=== PATIENT | female | born 1955 | race Caucasian/White ===

== ENCOUNTER 2018-09-24 12:08 | Observation (INO) | payer OTHER ==
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
--- NOTE | 2018-09-24 12:24 | RAD REPORT ---
EXAM DESCRIPTION: CT - Ct Stroke Brain Wo Cont - 09/24/2018 12:15 pm CLINICAL HISTORY: HEADACHE Headache, drowsiness, CVA symptomology COMPARISON: No comparisons TECHNIQUE: All CT scans are performed using dose optimization technique as appropriate and may inclu de automated exposure control or mA/KV adjustment according to patient size. FINDINGS: No intracranial hemorrhage, hydrocephalus or extra-axial fluid collection.Mild generalized brain atrophy is present with mild periventricular and deep white matter chronic microvascular ische debbi changes.No areas of brain edema or evidence of midline shift. The paranasal sinuses and mastoids are clear. The calvarium is intact. IMPRESSION: No acute intracranial abnormality. The findings were discussed with ER physician Dr. Gtz on 09/24/2018 at 12:20 p.m. by telephone.
[2018-09-24 12:41] LABS: Absolute Lymphocytes (CBC) 1.7 K/uL (0.7-4.9); Absolute Monocytes 0.4 K/uL (0.1-1.3); Absolute Neutrophil 2.4 K/uL (1.8-8.0); Basophils % 0.5 % (0-1.3); Eosinophils % 1.8 % (0-4.4); Hematocrit 41.1 % (36.0-45.0); Lymphocytes % 37.4 % (15.3-44.8); MPV 9.2 fL (7.6-11.3); Monocytes % 7.8 % (3.3-12.3); RBC Red Blood Cell Count 4.66 M/uL (3.86-4.86)
[2018-09-24 12:47] LABS: Protime INR 0.97
--- NOTE | 2018-09-24 12:57 | RAD REPORT ---
EXAM DESCRIPTION: RAD - Chest Single View - 09/24/2018 12:49 pm CLINICAL HISTORY: MALAISE Chest pain. COMPARISON: Chest Pa And Lat (2 Views) dated 11/20/2017; Chest Pa And Lat (2 Views) dated 10/16/2017; Chest Pa And Lat (2 Views) dated 11/03/2015; CHEST PA AND LAT 2 VIEW dated 01/13/2013 FINDINGS: Portable technique limits examination quality. The lungs are grossly clear. The heart is mildly enlarged in size. No displaced fractures. IMPRESSION: No acute intrathoracic process suspected.
[2018-09-24 13:07] LABS: BUN Blood Urea Nitrogen 15 mg/dL (7-18); Bicarbonate 27 mmol/L (21-32); C-Reactive Protein 8.52 mg/L (<3.00); Glucose Level 94 mg/dL (74-106); Sodium Level 142 mmol/L (136-145); Troponin (Emerg Dept Use Only) < 0.02 ng/mL (0.0-0.045)
--- NOTE | 2018-09-24 16:12 | ER ---
Nurse's Notes [facility] Name: Pamela Celis Age: 63 yrs Sex: Female : 1955 Arrival Date: 09/24/2018 Time: 12:11 Bed 6 Private MD: Diagnosis: Transient cerebral ischemic attack, unspecified Presentation: 09/24 12:11 Presenting complaint: Patient states: R sided headache that began 2 hours ago. Pt also ss states that she feels "disoriented" NIHSS 0 on arrival. Pt reports she had a head CT in July of this year because she has been having R eye pressure. EMS noted mild R sided weakness on arrival, but on arrival to ED, no weakness is observed. Transition of care: patient was not received from another setting of care. Onset of symptoms was September 24, 2018 at 10:00. Risk Assessment: Do you want to hurt yourself or someone else? Patient reports no desire to harm self or others. Initial Sepsis Screen: Does the patient meet any 2 criteria? No. Patient's initial sepsis screen is negative. Does the patient have a suspected source of infection? No. Patient's initial sepsis screen is negative. Care prior to arrival: None. 12:11 Method Of Arrival: EMS: [facility] 12:11 Acuity: LAUREN 3 ss Historical: - Allergies: 12:17 Morphine; ss - Home Meds: 12:17 amlodipine 5 mg tab 1 tab once daily [Active]; losartan 50 mg oral tab 1 tab once daily ss [Active]; omeprazole 40 mg Oral cpDR 1 cap once daily [Active]; ranitidine HCl 150 mg Oral cap 1 cap once daily [Active]; rosuvastatin 5 mg oral tab 1 tab once daily [Active]; - PMHx: 12:17 Asthma; Diverticulitis; GERD; ss - PSHx: 12:17 colon resection 02/18/13; ; Hysterectomy; cervical surgery; Carpal Tunnel ss Repair; - Immunization history:: Adult Immunizations up to date. - Social history:: Smoking status: Patient/guardian denies using tobacco. - Ebola Screening: : Patient denies exposure to infectious person Patient denies travel to an Ebola-affected area in the 21 days before illness onset. Screenin:18 Abuse screen: Denies threats or abuse. Denies injuries from another. Nutritional sv screening: No deficits noted. Tuberculosis screening: No symptoms or risk factors identified. Fall Risk None identified. Assessment: 12:25 General: Appears in no apparent distress. uncomfortable, well developed, Behavior is sv calm, cooperative, appropriate for age. Pain: Complains of pain in left frontal area, left side of forehead, left temporal area, left eye and left restorationism Pain currently is 8 out of 10 on a pain scale. Is continuous. Neuro: Level of Consciousness is awake, alert, obeys commands, Oriented to person, place, time, situation, Moves all extremities. Full function. Respiratory: Respiratory effort is even, unlabored, Respiratory pattern is regular, symmetrical. Derm: Skin is pink, warm \\T\\ dry. Musculoskeletal: Range of motion: intact in all extremities. 12:55 Reassessment: Patient appears in no apparent distress at this time. No changes from sv previously documented assessment. Patient and/or family updated on plan of care and expected duration. Pain level reassessed. Patient is alert, oriented x 3, equal unlabored respirations, skin warm/dry/pink. 13:00 Reassessment: Dr Landrum informed pt is requesting pain meds. sv 13:25 Reassessment: Dr Landrum informed pt is requesting pain meds. sv 14:28 Reassessment: Patient appears in no apparent distress at this time. No changes from sv previously documented assessment. Patient and/or family updated on plan of care and expected duration. Pain level reassessed. Patient is alert, oriented x 3, equal unlabored respirations, skin warm/dry/pink. Pt up to the bathroom. 16:25 Reassessment: Patient appears in no apparent distress at this time. No changes from sv previously documented assessment. Patient and/or family updated on plan of care and expected duration. Pain level reassessed. Patient is alert, oriented x 3, equal unlabored respirations, skin warm/dry/pink. 17:17 Reassessment: Patient appears in no apparent distress at this time. No changes from sv previously documented assessment. Patient and/or family updated on plan of care and expected duration. Pain level reassessed. Patient is alert, oriented x 3, equal unlabored respirations, skin warm/dry/pink. 17:41 Reassessment: Patient appears in no apparent distress at this time. No changes from sv previously documented assessment. Patient and/or family updated on plan of care and expected duration. Pain level reassessed. Patient is alert, oriented x 3, equal unlabored respirations, skin warm/dry/pink. Vital Signs: 12:01 BP 159 / 72; Pulse 63; Resp 18; Pulse Ox 100% ; sv 12:06 Temp 97.6; sv 13:18 BP 134 / 61; Pulse 60; Resp 12; Pulse Ox 96% ; sv 14:18 BP 127 / 64; Pulse 64; Resp 12; Pulse Ox 100% ; sv 15:03 BP 135 / 59; Pulse 68; Resp 20; Pulse Ox 99% ; sv 15:30 BP 119 / 58; Pulse 63; Resp 14; Pulse Ox 96% ; sv 16:30 BP 113 / 58; Pulse 68; Resp 15; Pulse Ox 97% ; sv 17:18 BP 118 / 60; Pulse 64; Resp 17; Pulse Ox 98% ; sv 17:41 BP 113 / 61; Pulse 63; Resp 14; Pulse Ox 98% ; sv NIH Stroke Scale Scores: 16:02 NIHSS Score: 0 ED Course: 12:11 Patient arrived in ED. ss 12:13 Pratik Landrum MD is Attending Physician. gs 12:14 Triage completed. ss 12:15 CT completed. Patient tolerated procedure well. Patient moved to CT via stretcher. Patient moved back from CT. 12:16 CT Stroke Brain w/o Contrast In Process Unspecified. EDMS 12:20 Arm band placed on. sv 12:20 Patient has correct armband on for positive identification. Placed in gown. Bed in low sv position. Call light in reach. laboratory monitor on. Pulse ox on. NIBP on. Door closed. Head of bed elevated. 12:26 Laura Cagle, RN is Primary Nurse. sv 12:34 Initial lab(s) drawn, by tn, sent to lab. Inserted saline lock: 22 gauge in left jb1 antecubital area, using aseptic technique. Blood collected. 12:45 EKG done, by process controls technician. reviewed by Pratik Landrum MD. dt2 12:52 Stroke CXR 1 View In Process Unspecified. EDMS 14:18 Awaiting: MRI. sv 16:11 Rachele Davila MD is Hospitalizing Provider. gs 17:17 Awaiting bed assignment. sv 17:17 No provider procedures requiring assistance completed. Patient admitted, IV remains in sv place. intact. Administered Medications: 16:25 Drug: Decadron - Dexamethasone 10 mg Route: IVP; Infused Over: 3 mins; Site: left sv antecubital; 17:18 Follow up: Response: No adverse reaction Point of Care Testing: Blood Glucose: 12:29 Blood Glucose: 103 mg/dL; Ranges: Outcome: 16:12 Decision to Hospitalize by Provider. 17:41 Admitted to Tele accompanied by tech, via wheelchair, room 213, with chart, Report sv called to Bria KUMAR 17:41 Condition: stable 17:41 Instructed on the need for admit. 17:46 Patient left the ED. NIH Stroke Scale - NIH Stroke Score Date: 09/24/2018 Time: 16:02 Total Score = 0 1a. Level of Consciousness (LOC) - 0(Alert) 1b. Level of Consciousness (LOC) (Year \\T\\ Age) - 0(Both) 1c. LOC Commands (Open \\T\\ Closes Eyes/Brand Engineer) - 0(Both) 2. Best Gaze (Lateral Gaze Paresis) - 0(Normal) 3. Visual Field Loss - 0(No visual loss) 4. Facial Palsy - 0(Normal) 5a. Left Arm: Motor (10-second hold) - 0(No drift) 5b. Right Arm: Motor (10-second hold) - 0(No drift) 6a. Left Leg: Motor (5-second hold - always test supine) - 0(No drift) 6b. Right Leg: Motor (5-second hold - always test supine) - 0(No drift) 7. Limb Ataxia (finger/nose \\T\\ heel/kohli - test with eyes open) - 0(Absent) 8. Sensory Loss (pinprick arms/legs/face) - 0(Normal) 9. Best Language: Aphasia (description/naming/reading) - 0(No aphasia) 10. Dysarthria (speech clarity - read or repeat words) - 0(Normal) 11. Extinction and Inattention (visual/tactile/auditory/spatial/personal) - 0(No abnormality) Initials: Signatures: Dispatcher [employer] EDLake Rodriguez Stephanie, RN RN Татьяна Garces RN RN Mary Lou Batres RN RN ph Jacklyn Khan Gregory, MD MD gs Teague, Danielle dt2 Corrections: (The following items were deleted from the chart) 17:35 17:33 Reassessment: Patient appears in no apparent distress at this time. ph Patient and/or family updated on plan of care and expected duration. Pain level reassessed. Patient is alert, oriented x 3, equal unlabored respirations, skin warm/dry/pink. Pt ambulated to restroom, denied dizziness upon standing, gait steady, accompanied by morgue technician ph
--- NOTE | 2018-09-24 16:12 | EDPHYS ---
Physician Documentation [facility] Name: Pamela Celis Age: 63 yrs Sex: Female : 1955 Arrival Date: 09/24/2018 Time: 12:11 Bed 6 Private MD: ED Physician Pratik Landrum HPI: 09/24 15:57 This 63 yrs old Female presents to ER via EMS with complaints of Headache, gs General Weakness. 15:57 The patient complains of pain to the right eye. 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 Onset: The symptoms/episode began/occurred acutely, just prior to arrival. Associated signs and symptoms: Pertinent positives: altered mental status, weakness. Severity of symptoms: At its worst the pain was severe, in the emergency department the pain has improved, markedly. other symptoms beside eye pain resolved captain cannery tender, feels a little generally weak. 16:02 Headache History: Denies prior headaches. The patient has experienced a previous gs episode, approximately 2 months ago, saw eye doctor had mri of eye was negative, and yest complaining of blurry vision per pt and doc had nl exam. Historical: - Allergies: 12:17 Morphine; ss - Home Meds: 12:17 amlodipine 5 mg tab 1 tab once daily [Active]; losartan 50 mg oral tab 1 tab once daily ss [Active]; omeprazole 40 mg Oral cpDR 1 cap once daily [Active]; ranitidine HCl 150 mg Oral cap 1 cap once daily [Active]; rosuvastatin 5 mg oral tab 1 tab once daily [Active]; - PMHx: 12:17 Asthma; Diverticulitis; GERD; ss - PSHx: 12:17 colon resection 02/18/13; ; Hysterectomy; cervical surgery; Carpal Tunnel ss Repair; - Immunization history:: Adult Immunizations up to date. - Social history:: Smoking status: Patient/guardian denies using tobacco. - Ebola Screening: : Patient denies exposure to infectious person Patient denies travel to an Ebola-affected area in the 21 days before illness onset. ROS: 16:02 All other systems are negative. gs Exam: 16:02 Head/Face: Normocephalic, atraumatic. Eyes: Pupils equal round and reactive to light, gs extra-ocular motions intact. Lids and lashes normal. Conjunctiva and sclera are non-icteric and not injected. Cornea within normal limits. Periorbital areas with no swelling, redness, or edema. ENT: Nares patent. No nasal discharge, no septal abnormalities noted. Tympanic membranes are normal and external auditory canals are clear. Oropharynx with no redness, swelling, or masses, exudates, or evidence of obstruction, uvula midline. Mucous membranes moist. Neck: Trachea midline, no thyromegaly or masses palpated, and no cervical lymphadenopathy. Supple, full range of motion without nuchal rigidity, or vertebral point tenderness. No Meningismus. Chest/axilla: Normal chest wall appearance and motion. Nontender with no deformity. No lesions are appreciated. Cardiovascular: Regular rate and rhythm with a normal S1 and S2. No gallops, murmurs, or rubs. Normal PMI, no JVD. No pulse deficits. Respiratory: Lungs have equal breath sounds bilaterally, clear to auscultation and percussion. No rales, rhonchi or wheezes noted. No increased work of breathing, no retractions or nasal flaring. Abdomen/GI: Soft, non-tender, with normal bowel sounds. No distension or tympany. No guarding or rebound. No evidence of tenderness throughout. Back: No spinal tenderness. No costovertebral tenderness. Full range of motion. Skin: Warm, dry with normal turgor. Normal color with no rashes, no lesions, and no evidence of cellulitis. MS/ Extremity: Pulses equal, no cyanosis. Neurovascular intact. Full, normal range of motion. Neuro: Awake and alert, GCS 15, oriented to person, place, time, and situation. Cranial nerves II-XII grossly intact. Motor strength 5/5 in all extremities. Sensory grossly intact. Cerebellar exam normal. Normal gait. 16:02 Constitutional: The patient appears alert, awake. 16:26 Head/face: Noted is tenderness, that is mild, of the right temporal area. Vital Signs: 12:01 BP 159 / 72; Pulse 63; Resp 18; Pulse Ox 100% ; sv 12:06 Temp 97.6; sv 13:18 BP 134 / 61; Pulse 60; Resp 12; Pulse Ox 96% ; sv 14:18 BP 127 / 64; Pulse 64; Resp 12; Pulse Ox 100% ; sv 15:03 BP 135 / 59; Pulse 68; Resp 20; Pulse Ox 99% ; sv 15:30 BP 119 / 58; Pulse 63; Resp 14; Pulse Ox 96% ; sv 16:30 BP 113 / 58; Pulse 68; Resp 15; Pulse Ox 97% ; sv 17:18 BP 118 / 60; Pulse 64; Resp 17; Pulse Ox 98% ; sv 17:41 BP 113 / 61; Pulse 63; Resp 14; Pulse Ox 98% ; sv NIH Stroke Scale Scores: 16:02 NIHSS Score: 0 gs MDM: 12:21 Patient medically screened. gs 16:02 Differential diagnosis: cerebral vascular accident, temporal arteritis, vasomotor gs headache, tia. Data reviewed: vital signs, nurses notes, lab test result(s), EKG, radiologic studies. Counseling: I had a detailed discussion with the patient and/or guardian regarding: the historical points, exam findings, and any diagnostic results supporting the discharge/admit diagnosis, the need for further work-up and treatment in the hospital. Physician consultation: spoke to laurent hobbs see, yecenia can do bx in a few days. 16:30 ED course: no tpa stroke scale 0. 09/24 12:22 Order name: CRP; Complete Time: 13:19 09/24 12:22 Order name: Troponin (emerg Dept Use Only); Complete Time: 13:19 09/24 12:22 Order name: Basic Metabolic Panel; Complete Time: 13:19 09/24 12:22 Order name: CBC with Diff; Complete Time: 13:19 09/24 12:22 Order name: Protime (+inr); Complete Time: 13:19 09/24 17:19 Order name: Glucose, Ancillary Testing EDNE 09/24 12:11 Order name: CT Stroke Brain w/o Contrast; Complete Time: 13:19 09/24 12:22 Order name: Stroke CXR 1 View; Complete Time: 13:19 09/24 12:22 Order name: EKG; Complete Time: 12:23 09/24 12:22 Order name: Accucheck; Complete Time: 12:35 09/24 13:44 Order name: MRI Stroke Protocol 09/24 12:22 Order name: Cardiac monitoring; Complete Time: 12:35 09/24 12:22 Order name: EKG - Nurse/Tech; Complete Time: 12:48 09/24 12:22 Order name: IV Saline Lock; Complete Time: 12:35 09/24 12:22 Order name: Labs collected and sent; Complete Time: 12:35 09/24 12:22 Order name: NPO; Complete Time: 12:35 09/24 12:22 Order name: O2 Per Protocol; Complete Time: 12:35 09/24 12:22 Order name: O2 Sat Monitoring; Complete Time: 12:48 09/24 12:22 Order name: Stroke Swallow Screen; Complete Time: 14:31 gs Administered Medications: 16:25 Drug: Decadron - Dexamethasone 10 mg Route: IVP; Infused Over: 3 mins; Site: left sv antecubital; 17:18 Follow up: Response: No adverse reaction sv Point of Care Testing: Blood Glucose: 12:29 Blood Glucose: 103 mg/dL; Ranges: Critical Glucose Levels:Adult <50 mg/dl or >400 mg/dl <40 mg/dl or >180 mg/dl Disposition: 09/24/18 16:12 Hospitalization ordered by Rachele Davila for Observation. Preliminary diagnosis is Transient cerebral ischemic attack, unspecified. - Bed requested for Telemetry/MedSurg (observation). - Status is Observation. sv - Condition is Stable. - Problem is new. - Symptoms have improved. UTI on Admission? No Critical care time excluding procedures: 16:02 Critical care time: Bedside Care: 10 minutes, Consultation: 10 minutes, Family gs Intervention: 10 minutes. Total time: 30 minutes NIH Stroke Scale - NIH Stroke Score Date: 09/24/2018 Time: 16:02 Total Score = 0 1a. Level of Consciousness (LOC) - 0(Alert) 1b. Level of Consciousness (LOC) (Year \T\ Age) - 0(Both) 1c. LOC Commands (Open \T\ Closes Eyes/Geriatrics Physician) - 0(Both) 2. Best Gaze (Lateral Gaze Paresis) - 0(Normal) 3. Visual Field Loss - 0(No visual loss) 4. Facial Palsy - 0(Normal) 5a. Left Arm: Motor (10-second hold) - 0(No drift) 5b. Right Arm: Motor (10-second hold) - 0(No drift) 6a. Left Leg: Motor (5-second hold - always test supine) - 0(No drift) 6b. Right Leg: Motor (5-second hold - always test supine) - 0(No drift) 7. Limb Ataxia (finger/nose \T\ heel/kohli - test with eyes open) - 0(Absent) 8. Sensory Loss (pinprick arms/legs/face) - 0(Normal) 9. Best Language: Aphasia (description/naming/reading) - 0(No aphasia) 10. Dysarthria (speech clarity - read or repeat words) - 0(Normal) 11. Extinction and Inattention (visual/tactile/auditory/spatial/personal) - 0(No abnormality) Initials: Signatures: Dispatcher [employer] EDMS Laura Cagle RN RN sv Woody, Diana, RN RN dw Smirch, Shelby, RN RN ss Starr, Gregory, MD MD gs Corrections: (The following items were deleted from the chart) 17:25 16:12 Hospitalization Ordered by Rachele Davila MD for Observation. Preliminary diagnosis is Transient cerebral ischemic attack, unspecified. Bed requested for Telemetry/MedSurg (observation). Status is Observation. Condition is Stable. Problem is new. Symptoms have improved. UTI on Admission? No. gs 17:46 17:25 09/24/2018 16:12 Hospitalization Ordered by Rachele Davila MD for sv Observation. Preliminary diagnosis is Transient cerebral ischemic attack, unspecified. Bed requested for Telemetry/MedSurg (observation). Status is Observation. Condition is Stable. Problem is new. Symptoms have improved. UTI on Admission? No. dw
[2018-09-24] MEDS ORDERED: DEXAMETHASONE 10 MG/ML VIAL ONE (16:28)
[2018-09-24] MEDS ORDERED: ONDANSETRON 4 MG/2 ML VIAL IV PRN (17:44)
[2018-09-24 18:18] VITALS: BMI 31.2
[2018-09-24] MEDS: METHYLPREDNISOLONE 40 MG INJ IV SCH (18:25)
[2018-09-24] MEDS: NA CHLORIDE 0.9% 1,000 ML IV SCH (18:25)
[2018-09-24] MEDS: ENOXAPARIN 40 MG/0.4 ML SQ SCH (18:25)
[2018-09-24] MEDS: ACETAMINOPHEN 500 MG TAB PO PRN (18:38)
--- NOTE | 2018-09-24 20:30 | RAD REPORT ---
EXAM DESCRIPTION: MRI - Brain W/Wo Cont - 09/24/2018 8:11 pm CLINICAL HISTORY: . Headache, blurry vision, drowsiness, CVA symptomology. COMPARISON: MRA Head Wo Cont dated 09/24/2018; Ct Stroke Brain Wo Cont dated 09/24/2018; Orbit Face W/Wo Cont dated 08/13/2018 TECHNIQUE: Multi-sequence, multiplanar MR imaging of the brain was performed with contrast. FINDINGS: No intracranial hemorrhage, hydrocephalus, or extra-axial fluid collection.A few tiny T2/F LAIR hyperintensities are seen in the anterior periventricular white matter. No edema or shift of mid line structures. No intracranial mass. DWI is negative for acute CVA. The midline structures are normally formed. Mastoid air cells and paranasal sinuses are clear. Post-contrast images show no abnormal enhancement to suggest tumor or infection. IMPRESSION: No acute or concerning intracranial abnormalities. No pathologic post-contrast enhancement suspected.
--- NOTE | 2018-09-24 20:32 | RAD REPORT ---
EXAM DESCRIPTION: MRI - MRA Head Wo Cont - 09/24/2018 8:12 pm CLINICAL HISTORY: HEADACHE CVA COMPARISON: Ct Stroke Brain Wo Cont dated 09/24/2018 FINDINGS: 3D noncontrast [id number] MR angiography of the [place] was performed. No aneurysm, flow-limiting stenosis or vascular malformation is seen. Forward flow seen in codominant vertebral arteries. The visualized dural venous sinuses appear patent. IMPRESSION: No significant flow abnormality of the [place] is identified.
--- NOTE | 2018-09-24 20:34 | RAD REPORT ---
EXAM DESCRIPTION: MRI - MRA Neck W/Wo Cont - 09/24/2018 8:11 pm CLINICAL HISTORY: . Headache, drowsiness, CVA symptomology. COMPARISON: No comparisons FINDINGS: Contrast enhance 2D [id number] MR angiography of the neck vessels was performed. A left aortic arch is noted with normal 3 vessel branching pattern of the great vessels. Forward flow is seen in codominant vertebral arteries. Both subclavian arteries and common carotid arteries appear widely patent. Both internal carotid arteries are patent bilaterally without significant stenosis seen. IMPRESSION: No significant flow abnormality of the neck vessels is identified.
--- NOTE | 2018-09-24 20:35 | RAD REPORT ---
EXAM DESCRIPTION: US - CP - 09/24/2018 8:30 pm CLINICAL HISTORY: TIA Headache, TIA/ CVA symptomology COMPARISON: <Comparisons> TECHNIQUE: Real-time sonographic evaluation of both carotid systems was performed. Doppler interroga tion was performed with waveform tracing bilaterally. FINDINGS: Normal high resistance waveforms are noted in both external carotid arteries. The common c arotid arteries and internal carotid arteries show normal low resistance waveforms. No significant plaque formation is seen. Peak systolic and end diastolic velocity values and the ICA/ CCA ratios are in the non-hemodynamically significant range. Antegrade flow seen in both vertebral arteries. IMPRESSION: No significant atherosclerotic changes noted. No evidence of a hemodynamically significant stenosis.
[2018-09-24] MEDS ORDERED: ATORVASTATIN 20 MG TAB PO SCH (21:00)
[2018-09-25] MEDS: METHYLPREDNISOLONE 40 MG INJ IV SCH ×2 (00:02→05:35)
[2018-09-25 04:20] VITALS: TEMP 97.3
--- NOTE | 2018-09-25 04:46 | HP ---
Date of Admission: 09/24/2018 Chief Complaint: Eye pain, blurred vision, and confusion. History Of Present Illness: She is a 63-year-old very pleasant female patient, who started to have t his eye problems sometime in July of this year. The patient describes her eye problem as back in July when she started having her symptoms, she had a very bad excruciating pain in her right eye and she had similar type of pain today like the way she had it in July. The way she describes h er eye problem is most of the time on a day-to-day basis, she has pressure in her right eye and she h as blurred vision out of both eyes, but right eye is worse than the left eye and this blurred vision problem is constant. She has been under care of restaurant attendant, Dr. Torres in [place] and the patien t says that she was diagnosed as having iritis and she was given some eyedrops and Medrol Dosepak. W hen she went back for followup, she was told that all the changes of inflammation in her eye had impr anyi. Past Sunday, she had really bad problem with blurred vision and she ended up seeing Dr. Torres yesterday again and had some more testing done and all her test came back okay at his office and his office started the referral process to see neuro-restaurant attendant in [place] and the patient does not have appointment yet as she has not heard from his office about the appointment. Meanwhile today, s he was on a conference call from home related to her work and all of a sudden she noted that she was confused and she really did not know what to say and she got scared. At that time, she gets excrucia ting pain in her right eye and she contacted her and she was brought into emergency room. Af ter she was evaluated in the ER, she was admitted to the hospital. After routine labs, CAT scan of t he head and chest x-ray were done. All those tests came back unremarkable except elevated CRP. The patient received 1 dose of IV Decadron in the emergency room, 10 mg and 1 dose of Solu-Medrol. I was not notified about this patient's presentation in the emergency room until I found out this evening that she was in the hospital and I contacted the ER physician and all this information was obtained f rom the ER physician and I saw her this evening and the patient and her , they informed me abo ut all these details as stated above. 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 Allergies: TO MORPHINE. Medications: List reviewed. Review of Systems: Eyes: As mentioned above. All other systems reviewed and negative. Family History: Not pertinent. Past Medical History: Significant for hypertension, hyperlipidemia, asthma, diverticulosis. Past Surgical History: Hysterectomy, , laminectomy. Social History: Negative for smoking, alcohol use. Physical Examination: Vital Signs: Temperature 97.6, pulse 67, respiratory rate 17, blood pressure 110/61, oxygen saturati on 94%. Height 5 feet and 2 inches, weight 171 pounds. General: Awake, alert, oriented, not in distress. HEENT: Head atraumatic, normocephalic. Conjunctivae nonerythematous. Sclerae white. Mouth, no thr ush or edema noted. Ears/Nose, no mass, lesion, discharge noted. Neck: Supple. No JVD, lymph nodes, bruit, thyromegaly noted. Lungs: Bilateral good equal air entry. Clear to auscultation. No rhonchi. No rales. Heart: Normal heart sounds, no murmur or gallop. Abdomen: Soft, bowel sounds normal. No guarding, rigidity, tenderness, mass, hepatosplenomegaly, di stention, or bruit noted. Extremities: No leg edema. No calf tenderness. Skin: No rash, ulcer, cellulitis. Lymphatics: No lymph node enlargement in neck, supraclavicular, infraclavicular region. Neuro: No focal neurological deficit. Chest: Unremarkable. External Genitalia: Deferred. Rectal: Deferred. Laboratory Data: Chest x-ray, no acute cardiopulmonary changes. CAT scan of the head, no acute intr acranial changes. White count 4.5, hemoglobin 13.9, platelets 249. Sed rate was ordered, result pen ding. Sodium 142, potassium 4, chloride 111, bicarb 27, BUN 15, creatinine 0.78, glucose 94. C-reac tive protein 8.52. Troponin less than 0.02. Impression: 1.Confusion. 2.Right eye pain. 3.Blurred vision. 4.Rule out temporal arteritis. 5.Hypertension. 6.Hyperlipidemia. 7.Diverticulosis. 8.Mild intermittent asthma. Plan: The patient was admitted from emergency room for observation and I saw her this evening for th is admission. She is scheduled to have MRI of the brain, which will be done this evening. Probably, we will consult Dr. Carpenter for temporal artery biopsy and Dr. Henry from Neurology. I will see he r tomorrow morning for followup. She is on steroid therapy. We will continue that. Details and antwon n of treatment discussed with her regarding importance of taking steroid therapy until we get the bio psy results back, then we decide about further plan of treatment as far as how long she needs to cont inue steroid therapy or not. If the biopsy comes back negative, then we can taper it off rapidly. I f it comes back positive, then it will be a slow taper. All these details were discussed with her. I will see her tomorrow for followup. Ambulation was encouraged. The patient was advised to move he r legs while inactive in the bed in the hospital to reduce chances of blood clot. JOAO/MODL Voice ID: [id number]
[2018-09-25 05:44] LABS: Absolute Lymphocytes (CBC) 0.9 K/uL (0.7-4.9); Absolute Neutrophil 3.4 K/uL (1.8-8.0); Basophils % 0.1 % (0-1.3); Hematocrit 40.5 % (36.0-45.0); Lymphocytes % 20.2 % (15.3-44.8); MPV 9.5 fL (7.6-11.3); Monocytes % 0.7 % (3.3-12.3); RBC Red Blood Cell Count 4.59 M/uL (3.86-4.86)
[2018-09-25 05:57] LABS: ALT/SGPT 28 U/L (12-78); AST/SGOT 15 U/L (15-37); Albumin 3.6 g/dL (3.4-5.0); Alkaline Phosphatase 112 U/L (45-117); BUN Blood Urea Nitrogen 11 mg/dL (7-18); Bicarbonate 25 mmol/L (21-32); Bilirubin Total 0.5 mg/dL (0.2-1.0); Glucose Level 154 mg/dL (74-106); HDL Cholesterol 53 mg/dL (40-60); LDL Cholesterol, Calculated 168 (<130); Potassium 3.9 mmol/L (3.5-5.1); Protein, Total 6.8 g/dL (6.4-8.2); Sodium Level 143 mmol/L (136-145)
[2018-09-25] MEDS ORDERED: POTASSIUM CL SA 10 MEQ TAB PO ONE (06:04)
[2018-09-25] MEDS: NA CHLORIDE 0.9% 1,000 ML IV SCH ×2 (07:04→08:22)
[2018-09-25] MEDS: ENOXAPARIN 40 MG/0.4 ML SQ SCH (08:20)
[2018-09-25] MEDS: ASPIRIN EC 81 MG TAB PO SCH ×2 (08:21→08:32)
[2018-09-25] MEDS: ACETAMINOPHEN 500 MG TAB PO PRN (08:25)
[2018-09-25] MEDS ORDERED: predniSONE 20 MG TAB PO SCH (09:00)
--- NOTE | 2018-09-25 10:33 | ECHO ---
HEIGHT: 5 ft 2 in WEIGHT: 171 lb 0 oz DATE OF STUDY: 09/25/[address]: Rachele Davila MD 2-DIMENSIONAL: YES M.MODE: YES DOPPLER: YES COLOR FLOW: YES TDS: NO PORTABLE: NO DEFINITY: NO BUBBLE STUDY: NO DIAGNOSIS: STROKE CARDIAC HISTORY: CATHERIZATION: NO SURGERY: NO PROSTHETIC VALVE: NO PACEMAKER: NO MEASUREMENTS (cm) DIASTOLIC (NORMALS) SYSTOLIC (NORMALS) IVSd 1.0 (0.6-1.2) LA Diam 3.5 (1.9-4.0) LVEF 82% LVIDd 3.9 (3.5-5.7) LVIDs 1.9 (2.0-3.5) %FS 50% LVPWd 1.1 (0.6-1.2) Ao Diam 3.0 (2.0-3.7) 2 DIMENSIONAL ASSESSMENT: RIGHT ATRIUM: NORMAL LEFT ATRIUM: NORMAL RIGHT VENTRICLE: NORMAL LEFT VENTRICLE: NORMAL TRICUSPID VALVE: NORMAL MITRAL VALVE: NORMAL PULMONIC VALVE: NORMAL AORTIC VALVE: NORMAL PERICARDIAL EFFUSION: NONE AORTIC ROOT: NORMAL LEFT VENTRICULAR WALL MOTION: NORMAL. DOPPLER/COLOR FLOW: PHYSIOLOGIC TRICUSPID REGURGITATION. NORMAL RIGHT VENTRICULAR SYSTOLIC PRESSURE. COMMENTS: NORMAL 2D ECHO WITH DOPPLER. TECHNOLOGIST: DIYA JUAN
[2018-09-25 12:34] VITALS: O2SAT 99
[2018-09-25 12:35] VITALS: BP 120/63
--- NOTE | 2018-09-26 19:56 | DS ---
Date of Discharge: 09/25/2018 Disposition: Discharged to go home. Physical Examination: HEENT: Unremarkable. Lungs: Clear to auscultation. Heart: Sounds normal. Abdomen: Soft bowel sounds normal. No guarding, rigidity, tenderness, or distention. Extremities: No leg edema. Laboratory Data: White count 4.3, hemoglobin 13.6, platelets 241. Sedimentation rate from yesterday was 14. CRP from yesterday was 8.52. Chemistry today; sodium 143, potassium 3.9, chloride 111, bicarb 25, BUN 11, creatinine 0.61, glucose 154. Liver function tests unremarkable. Hospital Course: A 63-year-old female patient admitted to the hospital with some blurred vision, con fusion and eye problem. Please see dictated H and P for more information. After patient was evaluat ed in the ER, she was admitted to the hospital. Her CAT scan of the brain was negative for any acute intracranial changes. Her CRP was slightly elevated. Sedimentation rate was normal. The patient r eceived 1 dose of Decadron in the emergency room 10 mg and then Solu-Medrol 1 dose was received prior to blood drawn for sedimentation rate. We need to rule out diagnosis of temporal arteritis and this was discussed with the patient and her . MRI of the brain was negative for any acute intracr anial changes. No stroke. No evidence of aneurysm. Carotid Doppler was unremarkable. Echo with Do ppler done today was unremarkable. So, the patient's eye complaints have improved somewhat today com pared to yesterday. No new complaints reported overnight. Dr. Carpenter was contacted who will see heather ent on outpatient basis tomorrow at his office and then he will schedule temporal artery biopsy to be done day after tomorrow. The patient has appointment to see me next week on Sunday, and she was en couraged to keep that appointment. As of this morning, she was started on prednisone 30 mg twice a d ay, so she will continue this upon discharge until further instruction. Discharge Medications And Instructions: Continue all prior home medication and the patient to restar t her cholesterol medication that she had stopped. She did not have any side effect from it and she has supply at home. 1.Prednisone 10 mg, patient to take 3 tablets by mouth 2 times a day and take it with food and follo w up at my office next week and follow up with Dr. Carpenter tomorrow. 2.The patient was advised to start aspirin 81 mg p.o. daily about 2 days after her temporal artery b iopsy procedure and was instructed to take it with food. Final Diagnoses: 1.Confusion, resolved. 2.Right eye pain. 3.Blurred vision. 4.Hypertension. 5.Hyperlipidemia. 6.Diverticulosis. 7.Mild intermittent asthma. 8.Rule out temporal arteritis. JOAO/MODL Voice ID: [id number] Report ID: [id number]
--- NOTE | 2018-10-01 11:08 | EKG ---
Test Date: 2018-09-24 Test Time: 12:37:39 Manager Process: JESUSITA MEASUREMENT RESULTS: Intervals: Rate: 62 NH: 120 QRSD: 82 QT: 420 QTc: 426 [place]: P: 31 NH: 120 QRS: 15 T: 33 INTERPRETIVE STATEMENTS: Normal sinus rhythm Normal ECG Compared to ECG 10/12/2012 14:53:13 No significant changes Electronically Signed On 09-24-18 16:59:41 CDT by Dariel Naranjo
== END 2018-09-25 12:27 | disposition home or self-care (01) ==
LOC: ER 12:08 → ERHOLD 16:38 → 2ND 17:38
PROVIDERS: ADMIT Internal Medicine; ATTEND Internal Medicine
DX: R41.0 Disorientation, unspecified (principal); H57.11 Ocular pain, right eye; H53.8 Other visual disturbances; I10 Essential (primary) hypertension; E78.5 Hyperlipidemia, unspecified; K57.90 Diverticulosis of intestine, part unspecified, without perforation or abscess without bleeding; J45.20 Mild intermittent asthma, uncomplicated
CPT/HCPCS: 36415; 70450; 70544; 70549; 70553; 71045; 80048; 80053; 80061; 82962; 83735; 84484; 85025; 85610; 85652; 86140; 93005; 93306; 93880; 94760; 96374; 99285; A9577; G0378; J1100; J1650; J2920; J7030; J7512

== ENCOUNTER 2018-09-27 07:56 | Day surgery (SDC) | payer OTHER ==
--- OUTSIDE RECORDS SUMMARY | 2018-09-27 08:00 | XMS REPORT | Clinical Summary ---
:1955 Author Organization [employer] [employer] Address [address] [place] [address] Care Team Providers Name Role Phone Khris [...] Encounters Date Type Specialty Care Team Description 09/25/2018 Telephone Ophthalmology Center, Ophthalmology - Clinical Care 09/24/2018 Telephone Ophthalmology Lai Biggs MD 01/29/2018 Office Visit Cardiovascular Hema Thomason Closed fracture of MD Mau body of sternum, initial encounter (Primary Dx) 11/29/2017 Office Visit Cardiovascular Hema Thomason Closed fracture of MD Mau body of sternum, initial encounter (Primary Dx) 11/29/2017 Hospital Encounter Radiology Hema Thomason Closed fracture of MD Mau sternum, unspecified portion of sternum, initial encounter 11/29/2017 Orders Only Cardiovascular Cindy Vasquez MA 11/26/2017 Orders Only Cardiovascular Rody Lawrence, STACY Closed fracture of sternum, unspecified portion of sternum, initial encounter (Primary Dx) after 09/26/2017 Social History Tobacco Use Types Packs/Day Years [...] 2006 SHINGLES VACCINES (#1) 2006 INFLUENZA VACCINE 01/23/2019 Procedures Procedure Name Priority Date/Time Associated Diagnosis [...] procedure are in the results section. after 09/26/[address] Chest W Contrast (11/29/2017 10:58 [...] the upper sternum. No displacement or hematoma. [facility]-[id number] Procedure Note [facility], Radiology Results Incoming - 11/29/2017 11:42 AM CDT EXAMINATION: CT [...] the upper sternum. No displacement or hematoma. [facility]-[id number] Performing Organization Address City/State/Zipcode Phone Number [facility] [address] [place] [address] Estimated GFR (11/29/2017 10:40 AM CDT) GFR Non Af Amer 85 mL/min/1.73 m2 [facility] DEPARTMENT OF PATHOLOGY AND GENOMIC MEDICINE GFR Af Amer >90 mL/min/1.73 m2 [facility] DEPARTMENT OF Comment: PATHOLOGY AND GENOMIC [...] and Americans. Specimen Blood Performing Organization Address [facility] Phone Number [facility] DEPARTMENT OF PATHOLOGY AND [address] [place] [phone] GENOMIC MEDICINE POC panel (11/29/2017 10:40 AM CDT) POC creatinine 0.7 0.5 - 0.9 mg/dl [facility] DEPARTMENT OF PATHOLOGY Comment: AND GENOMIC MEDICINE Meter ID: [id number] Mobile Home Laborer: Manjeet Gutierrez Performing Organization Address [facility] Phone Number [facility] DEPARTMENT OF PATHOLOGY AND [address] [place] [id number] GENOMIC MEDICINE after 09/26/2017 Insurance Payer Benefit Plan / Group Subscriber ID Type Phone Address [employer] APW[employer] CIGNA xxxxxxxxxxx Commercial CIG[employer] APU CIGNA xxxxxxxxxxx Commercial Pamela Celis Third Republican Self 1955 [address] (Home) [place] [address] Advance Directives Patient has advance care planning documents on file. For more information, please contact:Aman Mcclendon[address] [place] [address]
[2018-09-27] MEDS ORDERED: Ringers Lactate 1,000 ML IV ONE (08:20)
[2018-09-27] MEDS ORDERED: CEFAZOLIN/SWI 1gm 1 GM/10 ML SYR ONE (08:20)
[2018-09-27] MEDS ORDERED: LIDOCAINE 1% MPF 30 ML VIAL ONE (08:58)
[2018-09-27] MEDS ORDERED: FENTANYL CITR 100 MCG/2 ML ONE (09:29)
[2018-09-27] MEDS ORDERED: PROPOFOL 200 MG/20 ML VIAL IV ONE ×2 (09:30→09:56)
[2018-09-27] MEDS ORDERED: MIDAZOLAM HCL 2 MG/2 ML INJ ONE (09:30)
[2018-09-27] MEDS ORDERED: ONDANSETRON 4 MG/2 ML VIAL ONE ×2 (09:31→10:39)
[2018-09-27] MEDS ORDERED: LIDOCAINE 1% MPF 2 ML AMPULE ONE (09:31)
[2018-09-27] MEDS ORDERED: Mastisol Adhesive Liq ONE (10:21)
[2018-09-27] MEDS: MEPERIDINE HCL 25 MG/0.5 ML ONE ×2 (10:35→10:45)
[2018-09-27 11:11] VITALS: BP 98/54; TEMP 96.8; O2SAT 100
[2018-09-27] MEDS ORDERED: HYDROCODONE/APAP 7.5/325 MG TAB ONE (11:15)
--- NOTE | 2018-09-27 21:45 | OP ---
Date of Procedure: 09/27/2018 Surgeon: Sterling Carpenter MD Retort Operator: FIFI Fergusno. Preoperative Diagnosis: Right vision change and headache. Rule out temporal arteritis. Postoperative Diagnosis: Right vision change and headache. Rule out temporal arteritis. Procedure: Right temporal artery biopsy, Doppler-guided. Estimated Blood Loss: Minimal. Specimen: Right temporal artery. Findings: Above. Anesthesia: MAC. Complications: None. Disposition: The patient tolerated the procedure in stable condition and taken to Recovery in good g eneral condition. Procedure In Detail: The patient was brought to the OR and placed in supine position. MAC anesthesi a was begun. The patient was prepped and draped in usual sterile fashion. Then Doppler device used to identify branch of the temporal artery anterior and superior to the right ear, 4 cm segment identi fied, and then Marcaine 0.5% was infiltrated locally. A 15-blade was used to make a 4 cm incision. Subcutaneous tissue divided and the artery identified and freed from the surrounding tissue. Proxima l and distal control obtained, and then a 4 cm segment excised, sent to Pathology, and then both ends tied with 4-0 silk. Wound irrigated. Bleeding controlled with cautery. Then 4-0 chromic used to a pproximate the subcutaneous tissue and close the skin. Sterile dressing was applied. The patient was awakened and taken to Recovery in good general condition. /MODL Voice ID: [id number] Report ID: [id number]
--- NOTE | 2018-09-27 21:45 | DS ---
Date of Discharge: 09/27/2018 Discharge Note: The patient will go to Day Surgery and home when stable. Disposition: Home. Condition: Stable. Discharge Instructions: Resume home medications and diet. Activity as tolerated. No heavy lifting. Remove outer dressing in 2 days. Shower. Keep Steri-Strips on at all times. Tylenol No. 3 one ta blet p.o. q.4 p.r.n. pain. Follow up with me in [address] Aleman next week. DEVORAH/IRVIN Voice ID: [id number] Report ID: [id number]
== END 2018-09-27 12:00 | disposition home or self-care (01) ==
LOC: OR 07:56
PROVIDERS: ATTEND Surgery
PROC: 03BS0ZX Excision of Right Temporal Artery, Open Approach, Diagnostic (ICD-10-PCS; principal; 2018-09-27 09:30)
DX: H53.9 Unspecified visual disturbance (principal); R51 Headache
CPT/HCPCS: 88305; J0690; J2001; J2175; J2250; J2405; J2704; J3010

== ENCOUNTER 2023-07-19 19:52 | Inpatient (IN) | payer OTHER ==
[2023-07-19] MEDS ORDERED: BENZONATATE 100 MG CAP PO SCH (21:00)
[2023-07-19] MEDS ORDERED: ALBUTEROL 2.5 MG/3 ML NEB SOL ONE (21:10)
[2023-07-19] MEDS: ALBUTEROL 2.5 MG/3 ML NEB SOL NEB SCH (21:10)
[2023-07-19 21:35] VITALS: BMI 32.4
[2023-07-19 21:35] LABS: Absolute Lymphocytes (CBC) 2.4 K/uL (0.7-4.9); Hematocrit 38.3 % (36.0-45.0); Lymphocytes % 29.5 % (15.3-44.8); MCV 90.7 fL (80-100); MPV 8.4 fL (7.6-11.3); Platelets 235 thou/uL (152-406); RBC Red Blood Cell Count 4.22 M/uL (3.86-4.86)
[2023-07-19 21:57] LABS: Bilirubin Total 0.4 mg/dL (0.2-1.0)
[2023-07-19 21:58] LABS: Albumin 3.3 g/dL (3.4-5.0); Magnesium 2.2 mg/dL (1.6-2.4); Potassium 3.6 mEq/L (3.5-5.1); Protein, Total 6.8 g/dL (6.4-8.2)
[2023-07-19 22:56] VITALS: O2SAT 96
[2023-07-19] MEDS: METHYLPREDNISOLONE 40 MG INJ IV SCH (23:08)
[2023-07-19] MEDS: GUAIFENESIN/CODEINE 5ML UCUP PO PRN (23:08)
[2023-07-19] MEDS: ENOXAPARIN 40 MG/0.4 ML SQ SCH (23:08)
[2023-07-19] MEDS: DULERA 100/5 (MOMETASONE/FORMOTEROL) INHALER IH SCH (23:08)
[2023-07-20] MEDS: BENZONATATE 100 MG CAP PO SCH ×5 (01:00→23:26)
[2023-07-20] MEDS ORDERED: ALBUTEROL 2.5 MG/3 ML NEB SOL ONE (01:39)
[2023-07-20] MEDS: ALBUTEROL 2.5 MG/3 ML NEB SOL NEB SCH ×4 (01:42→19:59)
[2023-07-20] MEDS: METHYLPREDNISOLONE 40 MG INJ IV SCH ×3 (05:12→21:04)
--- NOTE | 2023-07-20 07:53 | RAD REPORT ---
EXAM DESCRIPTION: RAD - Chest Pa And Lat (2 Views) - 07/20/2023 4:58 am CLINICAL HISTORY: asthma, copd COMPARISON: Chest Pa And Lat (2 Views) dated 07/06/2023; Chest Single View dated 09/24/2018; Chest Pa A nd Lat (2 Views) dated 11/20/2017; Chest Pa And Lat (2 Views) dated 10/16/2017 TECHNIQUE: PA and lateral views of the chest were obtained. FINDINGS: The lungs are clear. Heart size is normal and central vasculature is within normal limits. No pleural effusion or pneumothorax seen. No acute bony finding noted. IMPRESSION: No acute cardiopulmonary process.
[2023-07-20] MEDS: DULERA 100/5 (MOMETASONE/FORMOTEROL) INHALER IH SCH ×2 (08:54→20:58)
[2023-07-20] MEDS: ENOXAPARIN 40 MG/0.4 ML SQ SCH (08:55)
[2023-07-20] MEDS: GUAIFENESIN/CODEINE 5ML UCUP PO PRN ×3 (08:56→21:41)
[2023-07-20] MEDS: IBUPROFEN 400 MG TAB PO SCH ×2 (12:21→20:55)
[2023-07-20] MEDS: ACETAMINOPHEN 500 MG TAB PO SCH ×2 (12:22→20:57)
--- NOTE | 2023-07-20 13:21 | PN ---
Date of Progress Note: 07/20/2023 Subjective: The patient was seen this morning for followup. Overall, she feels better today than ye sterday. She still has very frequent coughing and with a coughing spell, she gets shortness of breat h, but overall that is better than before with overnight treatment that she has received. She has so me pain in her chest wall muscles with coughing. Objective: Vital Signs: Reviewed. HEENT: Unremarkable. Lungs: Clear to auscultation. No wheezing, except when she was coughing at the time of examination, there was some wheezing noted at that time. Heart: Sounds normal. Abdomen: Soft. Bowel sounds normal. No guarding, rigidity, tenderness, distention. Extremities: No leg edema. Labs: Chest x-ray came back unremarkable. No acute cardiopulmonary changes noted. Impression: 1.Acute exacerbation of mild persistent asthma. 2.Hypertension. 3.Hyperlipidemia. 4.Diverticulosis. Plan: We will go ahead and continue current steroid therapy which is IV Solu-Medrol 40 mg every 8 ho urs. No need for any antibiotics at this point. Continue nebulizer treatment and cough medications per order. I will see her tomorrow for followup. Possible discharge to go home tomorrow depending o n her conditions and details were discussed with the patient and her who was on the phone with her. JOAO/MODL Voice ID: [id number] Report ID: [id number]
--- NOTE | 2023-07-20 20:03 | HP ---
Date of Admission: 07/19/2023 Chief Complaint: Cough, congestion, shortness of breath, wheezing. History Of Present Illness: This is a 68-year-old very pleasant female patient with history of asthm a, who started getting sick about 5 to 6 weeks ago with cough, nasal and chest congestion, and initia lly she was coughing up some mucus which was colored, shortness of breath and wheezing. The patient was given antibiotic and steroid medication, nasal spray and cough medication over 2 different times in last 4 to 6 weeks and unfortunately she did not improve and continues to have cough, some congesti on, coughing up clear mucus now, no colored mucus, and just feels very tired and weak. She gets shor t of breath either with coughing or when she walks in the house and has wheezing associated with coug ilana and shortness of breath. No fever. No chills. With all this ongoing symptoms, she came into o ffice and after she was evaluated, decision was made to admit her to the hospital with acute exacerba tion of asthma. Allergies: TO MORPHINE, LATEX, AND NATURAL RUBBER. Medications: List reviewed. Review of Systems: Respiratory: As mentioned above. Constitutional: As mentioned above. All other systems reviewed and negative. Family History: Not pertinent. Social History: Negative for smoking, alcohol use. Past Surgical History: Hysterectomy, , laminectomy. Past Medical History: Significant for hypertension, hyperlipidemia, asthma, and diverticulosis. Physical Examination: Vital Signs: Upon admission, temperature 98, pulse 91, respiratory rate 20, blood pressure 153/74, o xygen saturation 97% on room air. General: Awake, alert, oriented, not in distress. HEENT: Head atraumatic, normocephalic. Conjunctivae nonerythematous. Sclerae white. Mouth, no thr ush or edema noted. Ears/Nose, no mass, lesion, discharge noted. Neck: Supple. No JVD, lymph nodes, bruit, thyromegaly noted. Lungs: Bilateral good equal air entry. Clear to auscultation. No rhonchi. No rales. Heart: Normal heart sounds, no murmur or gallop. Abdomen: Soft, bowel sounds normal. No guarding, rigidity, tenderness, mass, hepatosplenomegaly, dis tention, or bruit noted. Extremities: No leg edema. No calf tenderness. Skin: No rash, ulcer, cellulitis. Lymphatics: No lymph node enlargement in neck, supraclavicular, infraclavicular region. Neuro: No focal neurological deficit. Chest: Unremarkable. External Genitalia: Deferred. Rectal: Deferred. Laboratory Data: White count 8.1, hemoglobin 13.1, platelets 235. Sodium 142, potassium 3.6, chlori de 113, bicarb 23, BUN 23, creatinine 0.83, glucose 101. Liver function tests unremarkable. Impression: 1.Acute exacerbation of mild persistent asthma. 2.Hypertension. 3.Hyperlipidemia. 4.Diverticulosis. Plan: We will go ahead and admit the patient to hospital for further evaluation and management of th is problem. The patient is appropriate for inpatient and is expected to spend 2 midnights in [facility]. We will start the patient on albuterol nebulizer treatment and cough medication which will be zehra zonatate and guaifenesin with codeine per order. Start the patient on IV steroid using Solu-Medrol. DVT prophylaxis will be given using Lovenox and we will get a chest x-ray done on her. We will cont inue home medication for hypertension, which is her amlodipine per order. Monitor blood pressure if necessary. Consider adjustment on antihypertensive medication. We will start her on Dulera and for her hyperlipidemia, we will continue her statin therapy per order. Details and plan of treatment discussed with her. I will see her tomorrow luis alfredo kumar for followup. JOAO/MODL Voice ID: [id number]
[2023-07-20] MEDS: ROSUVASTATIN 5 MG TAB PO SCH (20:55)
[2023-07-20] MEDS: LOSARTAN POTASSIUM 50 MG TABLET PO SCH (20:56)
[2023-07-20] MEDS ORDERED: METHYLPREDNISOLONE 40 MG INJ IV SCH (21:00)
[2023-07-21] MEDS: ALBUTEROL 2.5 MG/3 ML NEB SOL NEB SCH ×4 (01:37→20:04)
[2023-07-21] MEDS: METHYLPREDNISOLONE 40 MG INJ IV SCH ×3 (05:51→21:23)
[2023-07-21] MEDS: BENZONATATE 100 MG CAP PO SCH ×4 (05:51→23:52)
[2023-07-21] MEDS: GUAIFENESIN/CODEINE 5ML UCUP PO PRN ×3 (08:13→20:29)
[2023-07-21] MEDS: ENOXAPARIN 40 MG/0.4 ML SQ SCH (08:13)
[2023-07-21] MEDS: DULERA 100/5 (MOMETASONE/FORMOTEROL) INHALER IH SCH ×2 (08:13→20:34)
[2023-07-21] MEDS: PANTOPRAZOLE 40MG TABLET PO SCH (08:14)
[2023-07-21] MEDS: ASPIRIN 81 MG CHEWABLE TABLET PO SCH (08:14)
[2023-07-21] MEDS: ACETAMINOPHEN 500 MG TAB PO SCH ×3 (08:14→20:38)
[2023-07-21] MEDS: IBUPROFEN 400 MG TAB PO SCH ×3 (08:14→20:31)
[2023-07-21] MEDS: AMLODIPINE 5 MG TAB PO SCH (08:15)
[2023-07-21] MEDS: FAMOTIDINE 20 MG TAB PO SCH (08:15)
[2023-07-21] MEDS: PREDNISOLONE 1% OPTH SOLN 5ML OPTH SCH ×2 (09:00→11:55)
[2023-07-21] MEDS ORDERED: HOME MED 1 EA UNK (Omeprazole [Omeprazole] 20 MG Capsule.Dr) PO SCH (09:00)
[2023-07-21] MEDS: FLUTICASONE 50MCG NASAL SPRAY NAS SCH ×2 (14:32→20:34)
[2023-07-21] MEDS: MONTELUKAST 10 MG TAB PO SCH (14:33)
--- NOTE | 2023-07-21 14:57 | RAD REPORT ---
EXAM DESCRIPTION: CT - Thorax Wo Con - 07/21/2023 2:28 pm CLINICAL HISTORY: cough COMPARISON: 2011 ct TECHNIQUE: Computed axial tomography of the chest was obtained. Contrast was not requested. All CT scans are performed using dose optimization technique as appropriate and may include automated exposure control or mA/KV adjustment according to patient size. FINDINGS: The evaluation of mediastinum, melissa and vessels is limited secondary to lack of IV contras t administration. 3.1 centimeter right lower lobe cyst previously measured 2.4 centimeters. 3 millimeter lingular nodule unchanged is benign No mediastinal or hilar lymphadenopathy is seen. A pleural effusion is not present. No pericardial effusion IMPRESSION: No significant abnormality is displayed
--- NOTE | 2023-07-21 15:00 | RAD REPORT ---
EXAM DESCRIPTION: CTSinus Wo Cont07/21/2023 2:30 pm CLINICAL HISTORY: cough COMPARISON: None. TECHNIQUE: Computed axial tomography of the sinuses were obtained with coronal and sagittal reconstr uction. All CT scans are performed using dose optimization technique as appropriate and may include automated exposure control or mA/KV adjustment according to patient size. FINDINGS: Mild to moderate mucoperiosteal thickening sphenoid sinus. The frontal, ethmoid and maxillary sinuses are clear The ostiomeatal complexes are patent. The mastoids are clear. IMPRESSION: 1. [id number] sphenoi sinusitis 2. Patent ostiomeatal complexes.
--- NOTE | 2023-07-21 17:50 | PN ---
Date of Progress Note: 07/21/2023 Subjective: The patient was seen this morning for followup. No new complaints, problems reported by the patient, but she continues to have her ongoing cough problem. She did get better between the ti me of admission and yesterday morning to some extent, but after that, did not notice any ongoing impr ovement. She still continues to have very frequent coughing spells, and when she goes through a coug ilana spell, she ends up having wheezing and shortness of breath at that time. Occasionally she cough s up mucus that results getting into her throat from postnasal drip and it is clear. Physical Examination: HEENT: Unremarkable. Lungs: Clear to auscultation. Heart: Sounds normal. Abdomen: Soft. Bowel sounds normal. No guarding, rigidity, tenderness, distention. Extremities: No leg edema. Impression: 1.Acute exacerbation of mild persistent asthma. 2.Allergic rhinitis. 3.Hypertension. 4.Hyperlipidemia. Plan: We will go ahead and continue current nebulizer treatment, IV steroid which is Solu-Medrol 40 mg every 8 hours. Continue current cough medication and Dulera inhaler. I will go ahead and add flu ticasone nasal spray 2 sprays each nostril 2 times a day and montelukast 10 mg daily. I will also ge t a CAT scan of the sinuses and CAT scan of the chest done today without contrast. I will see her tomorrow for followup. JOAO/MODL Voice ID: [id number] Report ID: [id number]
[2023-07-21] MEDS: ROSUVASTATIN 5 MG TAB PO SCH (20:29)
[2023-07-21] MEDS: LOSARTAN POTASSIUM 50 MG TABLET PO SCH (20:30)
[2023-07-22] MEDS: ALBUTEROL 2.5 MG/3 ML NEB SOL NEB SCH ×2 (01:40→07:14)
[2023-07-22] MEDS: GUAIFENESIN/CODEINE 5ML UCUP PO PRN ×2 (02:08→08:06)
[2023-07-22] MEDS: BENZONATATE 100 MG CAP PO SCH (05:44)
[2023-07-22] MEDS: METHYLPREDNISOLONE 40 MG INJ IV SCH (05:45)
[2023-07-22] MEDS: MONTELUKAST 10 MG TAB PO SCH (08:07)
[2023-07-22] MEDS: ACETAMINOPHEN 500 MG TAB PO SCH (08:07)
[2023-07-22] MEDS: FAMOTIDINE 20 MG TAB PO SCH (08:08)
[2023-07-22] MEDS: PANTOPRAZOLE 40MG TABLET PO SCH (08:08)
[2023-07-22] MEDS: AMLODIPINE 5 MG TAB PO SCH (08:08)
[2023-07-22] MEDS: ENOXAPARIN 40 MG/0.4 ML SQ SCH (08:09)
[2023-07-22] MEDS: IBUPROFEN 400 MG TAB PO SCH (08:09)
[2023-07-22] MEDS: FLUTICASONE 50MCG NASAL SPRAY NAS SCH (08:09)
[2023-07-22] MEDS: ASPIRIN 81 MG CHEWABLE TABLET PO SCH (08:09)
[2023-07-22] MEDS: DULERA 100/5 (MOMETASONE/FORMOTEROL) INHALER IH SCH (08:10)
[2023-07-22 08:12] VITALS: BP 142/56
[2023-07-22 08:29] VITALS: TEMP 97.4
--- NOTE | 2023-07-22 12:36 | DS ---
Date of Discharge: 07/22/2023 Disposition: Discharged to go home. Hospital Course: This is a 68-year-old very pleasant female patient admitted to the hospital with co ugh, congestion, shortness of breath and wheezing. Please see dictated H and P for more information. After patient was admitted to the hospital, her routine labs were done and they were unremarkable. Chest x-ray did not show any acute cardiopulmonary changes. She was started on nebulizer treatment and IV steroid, which is Solu-Medrol 40 mg every 8 hours. She showed some improvement, but then as o f yesterday morning she informed me that she did not feel any better after initial improvement. She is coughing up clear mucus. No fever. So yesterday we added fluticasone nasal spray and montelukast and CAT scan of the chest and CAT scan of the sinuses was done because of her ongoing complaints wit h postnasal drainage. CAT scan of the sinuses has shown evidence of sinusitis involving sphenoid sin uses and CAT scan of the chest has shown 3 mm granuloma in the right lung and 3.1 cm right lower lobe cyst, which was 2.4 cm in size in 2012 and this appears to be benign cyst. No need for any further intervention. A 3 mm right lingular nodule appears to be benign. No need for further intervention o n it and all these findings were discussed with the patient. Today, while I was in room with her. S he was still having cough, but it was noted to be less compared to last couple of days. So with all this, there is no need for ongoing hospitalization. She has seen Dr. Kendrick on outpatient basis an d today I did inform her that she should follow up with him for further management and I also communi cated details with Dr. Kendrick today. The patient was discharged to go home in stable condition wit h following discharge medications and instructions. Physical Examination: HEENT: Unremarkable. Lungs: Clear to auscultation. No wheezing. No rales. Heart: Sounds normal. Abdomen: Soft. Bowel sounds normal. No guarding, rigidity, tenderness, distention. Extremities: No leg edema. Discharge Medications And Instructions: 1.Continue all prior home medications. 2.The patient has Flonase inhaler at home and she was instructed to take 2 sprays in each nostril 2 times a day. 3.Start pbud-fzi-mxwsjfn Claritin 10 mg take 1 tablet by mouth daily. 4.Continue to use Dulera inhaler 2 puffs by mouth 2 times a day, rinse mouth with water after its us e. Start following new medications and prescription will be sent to her pharmacy: 1.Pantoprazole 40 mg by mouth daily. 2.Montelukast 10 mg by mouth daily. 3.Prednisone 10 mg tablet. The patient to take 3 tablets daily for 1 week, then 2 tablets daily for 1 week, then 1 tablet daily for 1 week, then half a tablet daily for 1 week, then stop. 4.Azelastine nasal spray. The patient to use 1 spray in each nostril 2 times a day. 5.Once you are out of Dulera inhaler, start using Advair inhaler 1 puff 2 times a day. 6.Follow up with Dr. Kendrick this coming week and patient to call his office for appointment. 7.Follow up in my office next week. Call office for appointment. Final Diagnoses: 1.Acute exacerbation of mild persistent asthma. 2.Hypertension. 3.Hyperlipidemia. 4.Diverticulosis. 5.Right pulmonary nodule. 6.Right pulmonary cyst. 7.Chronic sinusitis, sphenoid sinuses. JOAO/MODL Voice ID: [id number] Report ID: [id number]
== END 2023-07-22 11:20 | disposition home or self-care (01) | DRG 203 ==
LOC: 2ND 19:52
PROVIDERS: ADMIT Internal Medicine; ATTEND Internal Medicine
DX: J45.31 Mild persistent asthma with (acute) exacerbation (principal); I10 Essential (primary) hypertension; E78.5 Hyperlipidemia, unspecified; R91.8 Other nonspecific abnormal finding of lung field; J98.4 Other disorders of lung; J32.3 Chronic sphenoidal sinusitis; K57.90 Diverticulosis of intestine, part unspecified, without perforation or abscess without bleeding; Z88.5 Allergy status to narcotic agent; Z91.040 Latex allergy status
CPT/HCPCS: 36415; 70486; 71046; 71250; 80053; 83735; 85025; 94640; J1650; J2920; J3535; J7613

== ENCOUNTER 2024-03-30 09:17 | Emergency (ER) | payer OTHER ==
[2024-03-30] MEDS ORDERED: LIDOCAINE 1% MPF 5 ML VIAL ONE (09:35)
[2024-03-30] MEDS ORDERED: CLINDAMYCIN 600MG/D5W 50 ML IV ONE (09:59)
[2024-03-30] MEDS ORDERED: KETOROLAC 30 MG/ML INJ ONE (10:30)
[2024-03-30 10:42] LABS: Absolute Eosinophils 0.1 K/uL (0-0.5); Absolute Lymphocytes (CBC) 1.4 K/uL (0.7-4.9); Absolute Monocytes 0.6 K/uL (0.1-1.3); Basophils % 0.4 % (0-1.3); Eosinophils % 1.7 % (0-4.4); Hematocrit 41.2 % (36.0-45.0); Hemoglobin 13.6 g/dL (12.0-15.0); Lymphocytes % 17.5 % (15.3-44.8); MCH 30.8 pg (27.0-35.0); MCV 93.4 fL (80-100); MPV 8.6 fL (7.6-11.3); Monocytes % 7.2 % (3.3-12.3); Neutrophils % 73.2 % (41.7-73.7); Platelets 225 thou/uL (152-406); RBC Red Blood Cell Count 4.41 M/uL (3.86-4.86); Red Cell Distribution Width 14.4 % (12.1-15.2)
[2024-03-30 10:46] LABS: Albumin 3.3 g/dL (3.4-5.0); Anion Gap 10.2 mEq/L (5.0-15.0); Bilirubin Total 0.6 mg/dL (0.2-1.0); Globulin 3.4 g/dL (2.3-3.5); Potassium 4.2 mEq/L (3.5-5.1); Protein, Total 6.7 g/dL (6.4-8.2)
--- NOTE | 2024-03-30 10:47 | RAD REPORT ---
EXAM: Wrist Right 3 View HISTORY: [facility] MAIN Swelling;Pain Bed Name: 18 COMPARISON: None TECHNIQUE: 3 views of the left wrist. FINDINGS: Osseous cortical irregularity/defect along the anterior mid shaft second digit proximal pha lanx. Soft tissue swelling throughout the second digit. Mild degenerative changes at the thumb base. No dislocation. Joint alignment is maintained. No significant degenerative changes are present . IMPRESSION: Soft tissue swelling about the second digit. Cortical irregularity along the anterior mid shaft second digit, may represent a small fracture.
--- NOTE | 2024-03-30 10:54 | EDPHYS ---
Physician Documentation [facility] Name: Pamela Celis Age: 68 yrs Sex: Female : 1955 Arrival Date: 03/30/2024 Time: 09:17 Bed 18 Private MD: ED Physician Leesa Ahmadi HPI: 03/30 09:57 This 68 yrs old Female presents to ER via Ambulatory with complaints of Wound dr5 Infection - right hand index finger. 09:57 Onset: The symptoms/episode began/occurred last week. Associated signs and symptoms:. dr5 Pt is a 68 year old female presenting to the ER for right index finger tenderness and swelling that started last week. The pain got worse yesterday and she took a needle and poked the side of it with minimal relief. Pt denies fever.. Historical: - Allergies: : Latex; hb 09:31 Morphine; hb - Home Meds: 09:31 amlodipine 5 mg tab 1 tab once daily [Active]; losartan 50 mg Oral tab 1 tab once daily hb [Active]; omeprazole 40 mg Oral cpDR 1 cap once daily [Active]; ranitidine HCl 150 mg Oral cap 1 cap once daily [Active]; rosuvastatin 5 mg Oral tab 1 tab once daily [Active]; - PMHx: 09:31 Asthma; Diverticulitis; GERD; hb - Immunization history:: Adult Immunizations up to date. - Infectious Disease History:: Denies. - Social history:: Smoking status: Patient denies any tobacco usage or history of. ROS: 09:57 Constitutional: as per hpi dr5 Exam: 09:57 Constitutional: This is a well developed, well nourished patient who is awake, alert, dr5 and in no acute distress. Neck: Trachea midline, no thyromegaly or masses palpated, and no cervical lymphadenopathy. Supple, full range of motion without nuchal rigidity, or vertebral point tenderness. No Meningismus. Chest/axilla: Normal chest wall appearance and motion. Nontender with no deformity. No lesions are appreciated. Cardiovascular: Regular rate and rhythm with a normal S1 and S2. Normal PMI, no JVD. No pulse deficits. Respiratory: Lungs have equal breath sounds bilaterally, clear to auscultation. No rales, rhonchi or wheezes noted. No increased work of breathing, no retractions or nasal flaring. Abdomen/GI: Soft, non-tender, non-distended 09:57 Skin: cellulitis, that is moderate, on the dorsal aspect of distal phalanx of right index finger, Vital Signs: 09:29 BP 172 / 82; Pulse 76; Resp 16; Temp 99(O); Pulse Ox 99% on R/A; Weight 81.65 kg; hb Height 5 ft. 3 in. ; Pain 8/10; 10:50 BP 149 / 70; Pulse 66; Resp 16 S; Pulse Ox 97% on R/A; kc6 09:29 Body Mass Index 31.89 (81.65 kg, 160.02 cm) hb 09:29 Pain Scale: Adult hb Procedures: :57 I \T\ D: Incision and drainage was performed for an abscess of the right dorsal aspect of dr5 distal phalanx of right index finger Prepped with alcohol, Anesthetized with 5 ml's 1% Lidocaine. Incised with #11 blade. Drained small amount purulent fluid. bloody fluid. Packed with Dressing: sterile 4x4 gauze, the patient tolerated the procedure well. Nerve block: (digital) of dorsal aspect of proximal phalanx of right index finger Medication: Lidocaine 1% without epinephrine Amount: 5 mls were injected, Effect: the patient's symptoms are improved, markedly, Set up for procedure. Performed by Rojas LEACH Patient tolerated well. MDM: 09:20 Patient medically screened. dr5 11:01 Differential diagnosis: viral Infection, bacterial infection, Paronychia. Data dr5 reviewed: vital signs, nurses notes. Consideration of Admission/Observation Escalation of care including admission/observation considered. Considered admission if osteomyelitis.. 11:01 I considered the following discharge prescriptions or medication management in the [facility] emergency department Medications were administered in the Emergency Department. See MAR. Care significantly affected by the following chronic conditions: Asthma, GERD. Care significantly affected by the following Social Determinants of Health: Poor access to healthcare and/or lack of insurance. Counseling: I had a detailed discussion with the patient and/or guardian regarding the historical points, exam findings, and any diagnostic results supporting the discharge/admit diagnosis, lab results, radiology results, the need for outpatient follow up, for definitive care, a family practitioner, a hand specialist. Medication response: Toradol markedly relieved the patient's pain. ED course: Patient states she has a hand specialist that she wants to make an appointment with. Lactic normal, WBC normal. No osteo noted on x-ray. Clindamycin IV x 1 dose given in ER. D/c with Keflex / Bactrim with close follow up as needed.. 03/30 09:50 Order name: CBC with Diff; Complete Time: 10:43 [facility] 03/30 09:50 Order name: CMP; Complete Time: 10:48 [facility] 03/30 09:50 Order name: Lactate w/ 2H reflex if indic.; Complete Time: 10:48 [facility] 03/30 09:32 Order name: Wrist Right 3 View XRAY; Complete Time: 10:48 [facility] 03/30 09:33 Order name: Incision \T\ Drainage Setup; Complete Time: 09:34 [facility] 03/30 09:50 Order name: IV Saline Lock - Large Bore; Complete Time: 10:21 [facility] 03/30 09:50 Order name: Labs collected and sent; Complete Time: 10:21 [facility] 03/30 09:50 Order name: O2 Per Protocol; Complete Time: 09:51 [facility] 03/30 09:50 Order name: O2 Sat Monitoring; Complete Time: 09:51 [facility] 03/30 09:50 Order name: Vital Signs; Complete Time: 09:51 dr5 Administered Medications: 09:41 Drug: Lidocaine Infiltration (1 %) 5 ml 5 ml Infiltration once; to bedside Volume: 5 kc6 ml; Route: Infiltration; 10:27 Follow up: Response: No adverse reaction; Pain is unchanged, physician notified kc6 10:26 Drug: Clindamycin IVPB 600 mg IVPB once over 30 mins; (mix in 50 mL) Route: IVPB; kc6 Infused Over: 30 mins; Site: right antecubital; 10:56 Follow up: Response: No adverse reaction; IV Status: Completed infusion; IV Intake: [id number] 10:34 Drug: Ketorolac IVP 15 mg IVP once Route: IVP; Site: right antecubital; kc6 10:50 Follow up: Response: No adverse reaction kc6 Disposition Summary: 03/30/24 10:53 Discharge Ordered Notes: Location: Home dr5 Condition: Stable dr5 Diagnosis - Cellulitis of finger dr5 Followup: dr5 - With: Emergency Department - When: As needed - Reason: Fever > 102 F, Worsening of condition Followup: dr5 - With: Private Physician - When: 2 - 3 days - Reason: Recheck today's complaints, Continuance of care, Re-evaluation by your physician Discharge Instructions: - Discharge Summary Sheet dr5 - Cellulitis, Adult, [id number] dr5 Forms: - Medication Reconciliation Form dr5 - Antibiotic Education dr5 - Patient Portal Instructions dr5 - Leadership Thank You Letter dr5 Prescriptions: - Cephalexin 500 mg Oral Capsule - take 1 capsule ORAL route every 6 hours for 10 days; 40 capsule; Refills: 0, dr5 Product Selection Permitted - Ibuprofen 800 mg Oral tablet - take 1 tablet ORAL route every 6 hours As needed take with food; 30 tablet; dr5 Refills: 0, Product Selection Permitted - Bactrim DS 800-160 mg Oral Tablet - take 1 tablet ORAL route every 12 hours for 7 days; 14 tablet; Refills: 0, dr5 Product Selection Permitted Signatures: Dispatcher [employer] EDMS Annemarie Ptarick RN RN Elisha Yu RN RN kc6 Rojas Carlin, SUPERVISOR RECEIVING AND PROCESSING-C SUPERVISOR RECEIVING AND PROCESSING-Cdr5 Corrections: (The following items were deleted from the chart) 09:51 09:50 CBC+H.LAB.BRZ ordered. EDMS EDMS 09:51 09:50 COMPREHENSIVE METABOLIC PANEL+C.LAB.BRZ ordered. EDMS EDMS 09:51 09:50 LACTATE+C.LAB.BRZ ordered. EDMS EDMS
--- NOTE | 2024-03-30 10:54 | ER ---
Nurse's Notes [facility] Name: Pamela Celis Age: 68 yrs Sex: Female : 1955 Arrival Date: 03/30/2024 Time: 09:17 Bed 18 Private MD: Diagnosis: Cellulitis of finger Presentation: 03/30 09:29 Chief complaint: Cut right index finger on metal baking xie 1 week ago, reports hb worsening redness, pain, and swelling over last few days. Coronavirus screen: At this time, the client does not indicate any symptoms associated with coronavirus-19. Ebola Screen: No symptoms or risks identified at this time. Initial Sepsis Screen: Does the patient meet any 2 criteria? No. Patient's initial sepsis screen is negative. Does the patient have a suspected source of infection? No. Patient's initial sepsis screen is negative. Risk Assessment: Do you want to hurt yourself or someone else? Patient reports no desire to harm self or others. Onset of symptoms was March 23, 2024. 09:29 Method Of Arrival: Ambulatory hb 09:29 Acuity: LAUREN 3 hb Historical: - Allergies: 09:31 Latex; hb 09:31 Morphine; hb - Home Meds: 09:31 amlodipine 5 mg tab 1 tab once daily [Active]; losartan 50 mg Oral tab 1 tab once daily hb [Active]; omeprazole 40 mg Oral cpDR 1 cap once daily [Active]; ranitidine HCl 150 mg Oral cap 1 cap once daily [Active]; rosuvastatin 5 mg Oral tab 1 tab once daily [Active]; - PMHx: 09:31 Asthma; Diverticulitis; GERD; hb - Immunization history:: Adult Immunizations up to date. - Infectious Disease History:: Denies. - Social history:: Smoking status: Patient denies any tobacco usage or history of. Screenin:43 [facility] ED Fall Risk Assessment (Adult) History of falling in the last 3 months, kc6 including since admission No falls in past 3 months (0 pts) Confusion or Disorientation No (0 pts) Intoxicated or Sedated No (0 pts) Impaired Gait No (0 pts) Mobility Assist Device Used No (0 pt) Altered Elimination No (0 pt) Score/Fall Risk Level 0 - 2 = Low Risk Oriented to surroundings, Maintained a safe environment. Abuse screen: Denies threats or abuse. Denies injuries from another. Nutritional screening: No deficits noted. Tuberculosis screening: No symptoms or risk factors identified. Assessment: 09:41 General: Appears in no apparent distress. comfortable, well groomed, well developed, kc6 Behavior is calm, cooperative, appropriate for age. Pain: Complains of pain in palmar aspect of distal phalanx of right index finger and right index fingernail. Neuro: Level of Consciousness is awake, alert, obeys commands, Oriented to person, place, time, situation, Appropriate for age. Cardiovascular: Capillary refill < 3 seconds. Respiratory: Airway is patent Trachea midline Respiratory effort is even, unlabored, Respiratory pattern is regular, symmetrical. GI: No signs and/or symptoms were reported involving the gastrointestinal system. : No signs and/or symptoms were reported regarding the genitourinary system. EENT: No signs and/or symptoms were reported regarding the EENT system. Derm: Skin is healthy with good turgor, Skin is dry, Skin is normal, Skin temperature is warm Bruising that is dark purple, on palmar aspect of distal phalanx of right index finger and right index fingernail. Musculoskeletal: Range of motion: intact in all extremities, Swelling present in palmar aspect of distal phalanx of right index finger. 10:11 Reassessment: 1 IV attempted at this time. pt requesting another nurse to try. thad Sharpe RN at bedside attempting to start and IV and collect labs. 10:49 Reassessment: Patient appears in no apparent distress at this time. No changes from kc6 previously documented assessment. Patient and/or family updated on plan of care and expected duration. Pain level reassessed. Patient is alert, oriented x 3, equal unlabored respirations, skin warm/dry/pink. Vital Signs: 09:29 BP 172 / 82; Pulse 76; Resp 16; Temp 99(O); Pulse Ox 99% on R/A; Weight 81.65 kg; hb Height 5 ft. 3 in. ; Pain 8/10; 10:50 BP 149 / 70; Pulse 66; Resp 16 S; Pulse Ox 97% on R/A; kc6 09:29 Body Mass Index 31.89 (81.65 kg, 160.02 cm) hb 09:29 Pain Scale: Adult hb ED Course: 09:19 Patient arrived in ED. im 09:20 Rojas Carlin, ELECTRIC FRYING PAN REPAIRER-C is PHCP. dr5 09:20 Leesa Ahmadi MD is Attending Physician. dr5 09:30 Elisha Toledo, STACY is Primary Nurse. kc6 09:31 Triage completed. hb 09:32 Arm band placed on. hb 09:42 Assist provider with I \T\ D: of an abscess on right index finger Set up I\T\D tray. valente 6 Performed by Rojas Carlin ELECTRIC FRYING PAN REPAIRER-C Dressing with 4X4s, tape Patient tolerated well. Patient maintains SpO2 saturation greater than 95% on room air. 09:43 Patient has correct armband on for positive identification. Bed in low position. Call kc6 light in reach. Side rails up X 1. Adult w/ patient. Pulse ox on. NIBP on. Door closed. Noise minimized. Lights dimmed. Pillow given. 09:57 Wrist Right 3 View XRAY In Process Unspecified. EDMS 10:11 Missed attempt(s): 22 gauge in left hand. kc6 10:20 Initial lab(s) drawn, by me, sent to lab. Inserted saline lock: 22 gauge in right hb antecubital area, using aseptic technique. Blood collected. Flushed with 10 mL NS. 10:27 Patient requests pain medication. kc6 11:06 IV discontinued, intact, bleeding controlled, No redness/swelling at site. Pressure kc6 dressing applied. Administered Medications: 09:41 Drug: Lidocaine Infiltration (1 %) 5 ml 5 ml Infiltration once; to bedside Volume: 5 kc6 ml; Route: Infiltration; 10:27 Follow up: Response: No adverse reaction; Pain is unchanged, physician notified kc6 10:26 Drug: Clindamycin IVPB 600 mg IVPB once over 30 mins; (mix in 50 mL) Route: IVPB; kc6 Infused Over: 30 mins; Site: right antecubital; 10:56 Follow up: Response: No adverse reaction; IV Status: Completed infusion; IV Intake: [id number] 10:34 Drug: Ketorolac IVP 15 mg IVP once Route: IVP; Site: right antecubital; kc6 10:50 Follow up: Response: No adverse reaction kc6 Medication: 11:06 VIS not applicable for this client. kc6 Intake: 10:56 IV: 50ml; Total: 50ml. kc6 Outcome: 10:53 Discharge ordered by . [place] 11:06 Discharged to home ambulatory, with significant other, kc6 11:06 Condition: good 11:06 Discharge instructions given to patient, significant other, Instructed on discharge instructions, follow up and referral plans. medication usage, wound care, Demonstrated understanding of instructions, follow-up care, medications, wound care, Prescriptions given X 3, 11:06 Patient left the ED. kc6 Signatures: Dispatcher [employer] EDMS Annemarie Patrick RN RN hb Campbell, Kaitlyn, RN RN kc6 Rajani Vora Dustin, ELECTRIC FRYING PAN REPAIRER-C ELECTRIC FRYING PAN REPAIRER-Cdr5
[2024-03-30 11:22] VITALS: TEMP 99
[2024-03-30 11:24] VITALS: BP 149/70; O2SAT 97
== END 2024-03-30 11:06 | disposition home or self-care (01) ==
LOC: ER 09:17
PROC: 0H9FXZZ Drainage of Right Hand Skin, External Approach (ICD-10-PCS; principal; 2024-03-30)
DX: L03.011 Cellulitis of right finger (principal)
CPT/HCPCS: 96365; 85025; 36415; 83605; 80053; 73110; 64450; 96375; 99284; 10060; J2001